=== PATIENT | female | born 1965 | race Caucasian/White ===

== ENCOUNTER 2018-04-13 06:48 | Outpatient (CLI) | payer OTHER ==
[2018-04-18] MEDS ORDERED: HYDROCHLOROTHIA25 MG PO (12:41)
[2018-04-18] MEDS ORDERED: LEVO-T25 MCG PO (12:41)
[2018-04-18] MEDS ORDERED: POTASSIUM CITR10 MEQ PO (12:42)
[2018-04-18] MEDS ORDERED: CAPTOPRIL25 MG PO (12:42)
== END 2018-04-13 06:52 | disposition home or self-care (01) ==
LOC: LAB 06:48
DX: N20.1 Calculus of ureter (principal); N30.00 Acute cystitis without hematuria; Z01.811 Encounter for preprocedural respiratory examination

== ENCOUNTER 2018-04-20 11:35 | Day surgery (SDC) | payer OTHER ==
[~2018-04-20 11:35] MED LIST: CAPTOPRIL25 MG PO; HYDROCHLOROTHIA25 MG PO; LEVO-T25 MCG PO; POTASSIUM CITR10 MEQ PO
== END 2018-04-20 21:35 | disposition home or self-care (01) ==
LOC: CIR.AMB 11:35
DX: N20.0 Calculus of kidney (principal); N20.1 Calculus of ureter

== ENCOUNTER 2018-04-28 07:52 | Outpatient (CLI) | payer OTHER | END 2018-04-28 08:00 | disposition home or self-care (01) | LOC: RAD 07:52 | DX: N20.0 Calculus of kidney (principal) ==

== ENCOUNTER 2022-05-05 18:35 | Inpatient (IN) | payer OTHER ==
[~2022-05-05] VITALS: Ht 170.2 cm; Wt 88.0 kg
--- NOTE | 2022-05-05 19:15 | NUR ---
PACIENTE ALERTA Y ORIENTADA POR 3 REFIERE DOLOR EN CORTADO RICKY POR NAMITA HAYES, ANGELA, DEEPAK AL JANNA Y DOLOR DE EDMAR SANTIZO.
--- NOTE | 2022-05-05 21:10 | NUR ---
SE ORIENTA PTE SOBRE EL TRATAMIENTO ORDENADO POR EL DR RASMUSSEN PTE ALERTA Y ORIETNADO POR 3 SE REALIZAN MUESTRAS DE LABORTORIO Y SE ADMINISTRAN MEDICAMENTOS JOHAN ORDENADO. SE NOTIFICA ESTUDIO DE CT
--- NOTE | 2022-05-06 04:28 | NUR ---
PTE ALERTA Y ORIENTADA X3 EN KARAN CON BARANDAS ELEVADAS. SE CANALIZA AREA MARILYN DE EDEMA Y DE ENROJECIMIENTO. SE MIGUEL ANGEL MUESTRAS DE LAB. JOHAN ORDEN MEDICA BAJO MEDIDAS ASEPTICAS. SE ADMINISTRAN MEDICAMENTOS JOHAN ORDEN MEDICA Y SE EDUCA SOBRE TRATAMIENTO MEDICO.
--- NOTE | 2022-05-06 07:01 | NUR ---
SE RECIBE PACIENTE FEMENINA ALERTA Y ORIENTADA X3, EN KARAN #8 CON BARRANDAS ELEVADAS. AREA DE VENOPUNCION EN BRAZO RICKY CON UN 0.9 NSS 1,000 BAJANDO 100ML/HR PATENTE MARILYN DE EDEMA ENROJECIMIENTO. SE OBSERVA POR CAMBIOS.
== END 2022-05-07 11:27 | disposition home or self-care (01) | DRG 661 ==
LOC: ER 18:35 → SEC-K 05-06 12:22 → O/R 05-06 12:22 → SURG 05-06 20:38
PROVIDERS: ADMIT Urology; ATTEND Urology
PROC: 0TF48ZZ Fragmentation in Left Kidney Pelvis, Via Natural or Artificial Opening Endoscopic (ICD-10-PCS; 2022-05-06)
PROC: 0TF78ZZ Fragmentation in Left Ureter, Via Natural or Artificial Opening Endoscopic (ICD-10-PCS; 2022-05-06)
PROC: BT1FZZZ Fluoroscopy of Left Kidney, Ureter and Bladder (ICD-10-PCS; 2022-05-06)
PROC: 0T778DZ Dilation of Left Ureter with Intraluminal Device, Via Natural or Artificial Opening Endoscopic (ICD-10-PCS; principal; 2022-05-06 14:00)
DX: N20.0 Calculus of kidney (principal); N20.1 Calculus of ureter; Z20.822 Contact with and (suspected) exposure to COVID-19

== ENCOUNTER 2022-05-12 08:23 | Outpatient (CLI) | payer OTHER | END 2022-05-12 08:40 | disposition home or self-care (01) | LOC: RAD 08:23 | PROVIDERS: ATTEND Urology | DX: N20.0 Calculus of kidney (principal) ==

== ENCOUNTER 2022-06-02 08:55 | Outpatient (CLI) | payer OTHER | END 2022-06-02 09:08 | disposition home or self-care (01) | LOC: RAD 08:55 | PROVIDERS: ATTEND Urology | DX: N20.0 Calculus of kidney (principal) ==